=== PATIENT | female | born 1940 | race Caucasian/White ===

== ENCOUNTER → 2025-07-03 00:11 | Outpatient (CLI) | payer MEDICARE, SELFPAY ==
--- NOTE | 2025-07-03 06:30 | DI.RAD_ITS ---
Exam(s) XR FOOT RT COMPLETE EXAM: XR FOOT RT COMPLETE CLINICAL HISTORY: cellulitis OF TOE OF RT FOOT,L03.031. TECHNIQUE: 2D digital imaging was performed. Three views. COMPARISON: No exams were available for comparison FINDINGS: Exam is limited by overlying gauze. BONES: No acute fracture is present. No bony destructive lesion is seen. Prominent heel spurs. JOINTS: No dislocation present. Severe hammertoe deformities. The 2nd through 4th toes are not well profiled. Degenerative changes of the inter tarsal and tarsal metatarsal region. SOFT TISSUE: Vascular calcifications. Calcifications in the Achilles tendon and plantar fascia. IMPRESSION: Severe hammertoe deformities and heel spurs. No definite bony erosions. DATA REPOSITORY: RADIATION DOSE DELIVERED:
== END ==
LOC: DI 00:11
PROVIDERS: PCP Family Medicine; Visit Provider Podiatrist
DX: L03.031 Cellulitis of right toe (principal); I83.012 Varicose veins of right lower extremity with ulcer of calf; L97.212 Non-pressure chronic ulcer of right calf with fat layer exposed; I83.022 Varicose veins of left lower extremity with ulcer of calf; L97.222 Non-pressure chronic ulcer of left calf with fat layer exposed; M20.41 Other hammer toe(s) (acquired), right foot; R60.0 Localized edema; I87.2 Venous insufficiency (chronic) (peripheral); I73.89 Other specified peripheral vascular diseases
CPT/HCPCS: 29580; 99204; 29850; 73630

== ENCOUNTER → 2025-07-10 12:54 | Outpatient (BNVA) | payer MEDICARE, SELFPAY | PROVIDERS: PCP Family Medicine; Referring Provider Family Medicine; Visit Provider Podiatrist | DX: L97.212 Non-pressure chronic ulcer of right calf with fat layer exposed (principal); L97.222 Non-pressure chronic ulcer of left calf with fat layer exposed; I83.212 Varicose veins of right lower extremity with both ulcer of calf and inflammation; I83.222 Varicose veins of left lower extremity with both ulcer of calf and inflammation; I89.0 Lymphedema, not elsewhere classified; R60.0 Localized edema; L03.115 Cellulitis of right lower limb; L03.116 Cellulitis of left lower limb | CPT/HCPCS: 11042; 29581 ==